=== PATIENT | female | born 1950 | race African-American/Black ===

== ENCOUNTER 2016-08-21 10:48 | Emergency (ER) | payer OTHER ==
[~2016-08-21] VITALS: Ht 165.1 cm; Wt 98.0 kg
[~2016-08-21 10:48] MED LIST: ASPI81TA2 PO; BENA10TA3 PO; METF850T2 PO
[2016-08-21 11:06] LABS: GLUCOSE,POINT OF CARE 55 MG/DL (70-110)
[2016-08-21 12:11] LABS: GLUCOSE,POINT OF CARE 120 MG/DL (70-110)
[2016-08-21] MEDS ORDERED: ACETAMINOPHEN 325 MG TABLET PO ONE (12:30)
[2016-08-21 13:40] VITALS: BP 150/77
== END 2016-08-21 13:42 | disposition home or self-care (01) ==
LOC: EMS 10:52
DX: M62.830 Muscle spasm of back (principal); N39.0 Urinary tract infection, site not specified; E11.9 Type 2 diabetes mellitus without complications; I10 Essential (primary) hypertension; Z88.0 Allergy status to penicillin
CPT/HCPCS: 82962; 99283